=== PATIENT | male | born 1955 | race Caucasian/White ===

== ENCOUNTER 2019-07-08 18:25 | Emergency (ER) | payer OTHER ==
[~2019-07-08] VITALS: Ht 172.7 cm; Wt 90.9 kg
[2019-07-08] MEDS ORDERED: OMEP20 PO (18:34)
[2019-07-08] MEDS ORDERED: ASPI-556 PO (18:34)
[2019-07-08] MEDS ORDERED: PERTUSS(ACELL),DIPH,TET VAC/PF 0.5 ML VIAL IM ONE (21:45)
[2019-07-08] MEDS ORDERED: BACITRACIN 0.9 GM PACKET OINTMENT TP ONE (21:45)
[2019-07-08] MEDS ORDERED: BUPIVACAINE HCL/PF 0.25% 10 ML VIAL INJ ONE (21:45)
[2019-07-08 22:30] VITALS: BP 123/74
== END 2019-07-08 22:45 | disposition home or self-care (01) ==
LOC: EMS 18:26
DX: S61.412A Laceration without foreign body of left hand, initial encounter (principal); K21.9 Gastro-esophageal reflux disease without esophagitis; Z98.890 Other specified postprocedural states; Z79.82 Long term (current) use of aspirin; Z79.899 Other long term (current) drug therapy; W26.8XXA Contact with other sharp object(s), not elsewhere classified, initial encounter; Y93.89 Activity, other specified; Y92.89 Other specified places as the place of occurrence of the external cause; Y99.8 Other external cause status
CPT/HCPCS: 12001; 99283; J3490